=== PATIENT | female | born 1960 | race Caucasian/White ===

== ENCOUNTER → 2017-02-16 | Outpatient (CLI) | payer OTHER ==
[~2017-02-16] MED LIST: ASPEC325 PO; CALC1TAB9; CLB200 PO; CODCAP4; DULO60CA44 PO; GEMF600T PO; GLUCPOW41; HYDR-5688 PO; OMEG10007 PO; OXYSR10 PO; POTA-327 PO; SNK PO; VALS320T PO; [UNRECOGNIZED DRUG - CODE] PO
--- NOTE | 2017-02-16 11:43 | DIAGNOSTIC IMAGING REPORT ---
BONE SCAN 3 PHASE LIMITED CLINICAL HISTORY: LEFT KNEE PAIN pain TECHNIQUE: 3 phase study following the administration of 27 mCi technetium 99m HDP. Initial dynamic images confirm vascular flow to be symmetric. Blood pool images demonstrate a slight increase in activity of the right knee compared to the left. COMPARISON STUDY: None FINDINGS: Normal vascular flow to both knees. Blood pool images show increased activity about the right knee. Delayed images demonstrate unremarkable activity about the patient's total left knee prosthetic. Moderate degenerative change all major joint compartments of the right knee. There is a slight increase in activity about the tip of the patient's longstem tibial prosthetic. This most likely is reactive. No abnormal soft tissue activity characteristics are present. IMPRESSION: 1. No abnormal activity about the total left knee prosthetic. 2. Degenerative activity right knee. 3. Small focus of mildly increased activity adjacent to the tip of the long stem left tibial prosthetic felt to be stress related. The above report was generated using voice recognition software. It may contain grammatical, syntax or spelling errors. Electronically signed by: Mohan Vo M.D. 02/16/2017 11:42 AM Dictated Date/Time: 02/16/2017 11:39 AM
== END | disposition home or self-care (01) ==
LOC: C.NUCL 06:54
PROVIDERS: ATTEND Pain Medicine Interventional Pain Medicine
DX: M25.562 Pain in left knee (principal); Z96.652 Presence of left artificial knee joint